=== PATIENT | female | born 1960 ===

== ENCOUNTER 2018-08-12 00:33 | Outpatient (CLI) | payer BC | END 2018-08-12 23:59 | disposition home or self-care (01) | LOC: DIABETIC 00:33 | PROVIDERS: ATTEND Internal Medicine | DX: E11.9 Type 2 diabetes mellitus without complications (principal); Z79.84 Long term (current) use of oral hypoglycemic drugs | CPT/HCPCS: G0108 ==

== ENCOUNTER 2018-09-09 03:20 | Outpatient (CLI) | payer BC | END 2018-09-09 23:59 | disposition home or self-care (01) | LOC: DIABETIC 03:20 | PROVIDERS: ATTEND Internal Medicine | DX: E11.9 Type 2 diabetes mellitus without complications (principal); Z79.84 Long term (current) use of oral hypoglycemic drugs | CPT/HCPCS: G0108 ==

== ENCOUNTER 2018-12-30 02:17 | Outpatient (CLI) | payer BC | END 2018-12-30 23:59 | disposition home or self-care (01) | LOC: DIABETIC 02:17 | PROVIDERS: ATTEND Internal Medicine | DX: E11.9 Type 2 diabetes mellitus without complications (principal); Z79.84 Long term (current) use of oral hypoglycemic drugs; Z79.899 Other long term (current) drug therapy | CPT/HCPCS: G0108 ==

== ENCOUNTER 2019-04-06 04:30 | Outpatient (CLI) | payer BC | END 2019-04-06 23:59 | disposition home or self-care (01) | LOC: DIABETIC 04:30 | PROVIDERS: ATTEND Internal Medicine | DX: E11.9 Type 2 diabetes mellitus without complications (principal) | CPT/HCPCS: G0108 ==

== ENCOUNTER 2019-08-05 00:57 | Outpatient (CLI) | payer BC | END 2019-08-05 23:59 | disposition home or self-care (01) | LOC: DIABETIC 00:57 | PROVIDERS: ATTEND Internal Medicine | DX: E11.9 Type 2 diabetes mellitus without complications (principal) | CPT/HCPCS: G0108 ==